=== PATIENT | male | born 1955 | race Caucasian/White ===

== ENCOUNTER 2016-07-30 08:21 | Emergency (ER) | payer OTHER ==
[2016-07-30 08:41] VITALS: BP 135/76; PULSE 73; RESP 16; TEMP 98.1; O2SAT 95
--- NOTE | 2016-07-30 09:23 | EDPHY ---
H & P Time Seen by Provider: 07/30/16 08:41 HPI/ROS: CHIEF COMPLAINT: right wrist pain HISTORY OF PRESENT ILLNESS: 52-year-old male presents emergency department complaining of worsening right lateral wrist pain over the last week. Patient states it is worsening and aching up to his elbow. Patient denies trauma. 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 Patient denies previous similar symptoms. He is [id number], no numbness or tingling in his hand. Patient denies neck pain. Smoking Status: Never smoked Physical Exam: GEN: Awake, alert, oriented, no acute distress RESP: nl resp effort MSK: Right wrist with decreased range of motion due to pain, no swelling, no redness, no warmth, tenderness over 1st dorsal compartment, positive Katharine test. 2+ radial pulses, cap refill less than 2 seconds SKIN: No break in skin Constitutional: Initial Vital Signs Temperature (C) 36.7 C 07/30/16 08:38 Heart Rate 73 07/30/16 08:38 Respiratory Rate 16 07/30/16 08:38 Blood Pressure 135/76 H 07/30/16 08:38 O2 Sat (%) 95 07/30/16 08:38 O2 Delivery Mode Room Air Allergies/Adverse Reactions: Penicillins Allergy (Intermediate, Verified 01/12/09 15:41) JOINT SWELLING Home Medications: Medication Instructions Recorded (None) 01/12/09 MDM/Departure - Depart Disposition: Home, Routine, Self-Care Clinical Impression: De Quervain's tenosynovitis, right Condition: Good Instructions: De Quervain Disease (ED) Additional Instructions: Wear Velcro thumb spica splint for the next week. Ice, take 600 mg of ibuprofen every 8 hours with food for 5 days. Remove lidocaine patch in 12 hours. Follow up with your orthopedist for symptoms that are not improving in the next 5-7 days. Return to the emergency department for worsening symptoms, fevers, redness to your joint, new symptoms or concerns. Referrals: Britney Maria MD [Medical Doctor] - As per Instructions (Hand doctor cloud operations engineer. )
[2016-07-30] MEDS ORDERED: LIDOCAINE 5% 1 EA PATCH TD ONE (09:29)
[2016-07-30] MEDS ORDERED: PATCH REMOVAL 1 EA PATCH TD SCH (21:00)
[2016-07-31] MEDS ORDERED: LIDOCAINE 5% 1 EA PATCH TD ONE (09:00)
== END 2016-07-30 10:10 | disposition home or self-care (01) ==
DX: M65.4 Radial styloid tenosynovitis [de Quervain] (principal)
CPT/HCPCS: L3807

== ENCOUNTER → 2018-07-24 | Outpatient (CLI) | payer OTHER | LOC: FIMAGING 13:02 | PROVIDERS: ATTEND Orthopaedic Surgery | DX: M17.12 Unilateral primary osteoarthritis, left knee (principal) ==

== ENCOUNTER 2018-07-31 05:54 | Observation (INO) | payer OTHER ==
--- NOTE | 2018-07-31 05:59 | PDHPUP ---
History & Physical Update H&P update statement: This history and physical update is based on an assessment of the patient which was completed after admission or registration (within 24 hours), but prior to the surgery/procedure. H&P update: H&P reviewed & patient examined, no change in patient's condition since H&P completed
[2018-07-31] MEDS ORDERED: TRANEXAMIC ACID 3,000 MG in NS (SYRINGE) 50 ML IRR ONE (06:00)
[2018-07-31] MEDS ORDERED: ROPIVACAINE 0.2% 80 MG, EPINEPHrine 0.2 MG, KETOROLAC TROMETHAMINE 30 MG in SYRINGE 0 ML IU ONE (06:00)
[2018-07-31] MEDS ORDERED: ceFAZolin 2 GM/DEXTROSE 100 ML IV ONE (06:07)
[2018-07-31] MEDS ORDERED: DEXAMETHASONE 4 MG/ML VIAL IVP ONE (06:07)
[2018-07-31] MEDS ORDERED: FAMOTIDINE 20 MG TAB PO ONE (06:07)
[2018-07-31] MEDS ORDERED: ACETAMINOPHEN 325 MG TAB PO ONE (06:07)
[2018-07-31] MEDS ORDERED: LR 1,000 ML IV ONE (06:08)
[2018-07-31] MEDS ORDERED: TRANEXAMIC ACID 3,000 MG/50 ML BAG IRR ONE (06:48)
--- NOTE | 2018-07-31 06:54 | PDANEPAE ---
ANE History of Present Illness left knee pain, here for L TKA ANE Past Medical History - Cardiovascular History Hx Hypertension: No Hx Arrhythmias: No Hx Chest Pain: No Hx Coronary Artery / Peripheral Vascular Disease: No Hx CHF / Valvular Disease: No Hx Palpitations: No Cardiovascular History Comment: HLD - Pulmonary History Hx COPD: No Hx Asthma/Reactive Airway Disease: Yes Hx Recent Upper Respiratory Infection: Yes Hx Oxygen in Use at Home: No Hx Sleep Apnea: No Sleep Apnea Screening Result - Last Documented: Positive Pulmonary History Comment: URI 05/2018 - Neurologic History Hx Cerebrovascular Accident: No Hx Seizures: No Hx Dementia: No Neurologic History Comment: Postherpetic neuralgia R foot - Endocrine History Hx Diabetes: No - Renal History Hx Renal Disorders: No - Liver History Hx Hepatic Disorders: No - Neurological & Psychiatric Hx Hx Neurological and Psychiatric Disorders: No - Cancer History Hx Cancer: No - Congenital Disorder History Hx Congenital Disorders: No - GI History Hx Gastrointestinal Disorders: Yes Gastrointestinal History Comment: GERD intermittently - Other Health History Other Health History: Insomnia. Bilateral knee arthritis. [place]-bilateral hearing aides. Reports having had bleeding after surgeries. - Chronic Pain History Chronic Pain: No - Surgical History Prior Surgeries: Deviated septum repair ~2008. Uvulectomy ~2010. L knee surgeries x3. R knee surgeries x1-2. Bilateral carpal tunnel surgery. Corpal tunnel surgery R arm ANE Review of Systems Review of Systems: - Exercise capacity METS (RN): 4 METS ANE Patient History - Allergies Allergies/Adverse Reactions: Penicillins Allergy (Intermediate, Verified 01/12/09 15:41) JOINT SWELLING - Home Medications Home Medications: Cholecalciferol Vit D3 [Vitamin D3 (*)] 1,000 units PO DAILY 07/16/18 [Last Taken 07/16/18] Zolpidem Tartrate [Ambien 5MG (*)] 2.5 mg PO HS PRN 07/16/18 [Last Taken ] traMADol [Ultram 50 mg (*)] 50 mg PO DAILY PRN 07/16/18 [Last Taken 2 Weeks Ago ~07/17/18] Acetamn/Diphenhydramine 500/25 [Tylenol PM (*)] 1 each PO HS PRN 07/22/18 [Last Taken 07/20/18] - NPO status NPO Since - Liquids (Date): 07/30/18 NPO Since - Liquids (Time): 20:00 NPO Since - Solids (Date): 07/30/18 NPO Since - Solids (Time): 20:00 - Smoking Hx Smoking Status: Never smoked - Family Anes Hx Family Hx Anesthesia Complications: None. ANE Labs/Vital Signs - Vital Signs Blood Pressure: 121/83 Heart Rate: 67 Respiratory Rate: 17 O2 Sat (%): 92 Height: 175.26 cm Weight: 86.183 kg ANE Physical Exam - Airway Neck exam: FROM Mallampati Score: Class 1 Mouth exam: normal dental/mouth exam - Pulmonary Pulmonary: no respiratory distress, no rales or rhonchi - Cardiovascular Cardiovascular: regular rate and rhythym, no murmur, rub, or gallop - ASA Status ASA Status: II ANE Anesthesia Plan Anesthesia Plan: GA with mask, spinal Regional Anesthesia: single shot NB Total IV Anesthesia: Yes
[2018-07-31] MEDS ORDERED: MIDAZOLAM 2 MG/2 ML VIAL IVP ONE (06:55)
[2018-07-31] MEDS ORDERED: MIDAZOLAM 2 MG/2 ML VIAL ONE (06:56)
[2018-07-31] MEDS ORDERED: BUPIVACAINE 0.25% 30 ML SDV ONE (06:57)
[2018-07-31] MEDS ORDERED: LIDOCAINE 2% 100 MG/5 ML SYR ONE (07:00)
[2018-07-31] MEDS ORDERED: PROPOFOL/EMULSION 500 MG/50 ML BOTTLE IV ONE ×2 (07:00→07:46)
[2018-07-31] MEDS ORDERED: fentaNYL 100 MCG/2 ML INJ ONE (07:00)
[2018-07-31] MEDS ORDERED: PROMETHAZINE HCL 25 MG SUPPR PR PRN (07:10)
[2018-07-31] MEDS ORDERED: PROMETHAZINE HCL 25 MG/ML INJ IVP PRN (07:10)
[2018-07-31] MEDS ORDERED: diphenhydrAMINE 25 MG CAP PO PRN (07:10)
[2018-07-31] MEDS ORDERED: METOCLOPRAMIDE 10 MG/2 ML VIAL IVP PRN (07:10)
[2018-07-31] MEDS ORDERED: TEMAZEPAM 15 MG CAP PO PRN (07:10)
[2018-07-31] MEDS ORDERED: BISACODYL 10 MG SUPP PR PRN (07:10)
[2018-07-31] MEDS ORDERED: LACTULOSE 20 GM/30 ML UDCUP PO PRN (07:10)
[2018-07-31] MEDS ORDERED: MAGNESIUM HYDROXIDE 30 ML UDCUP PO PRN (07:10)
[2018-07-31] MEDS ORDERED: POLYETHYLENE GLYCOL 3350 17 GM PKT PO PRN (07:10)
[2018-07-31] MEDS ORDERED: ONDANSETRON DISINTEGRATING 4 MG TAB PO PRN (07:10)
[2018-07-31] MEDS ORDERED: CYCLOBENZAPRINE 10 MG TAB PO PRN (07:10)
[2018-07-31] MEDS ORDERED: DIPHENOXYLATE/ATROPINE LOMOTIL 1 TAB PO PRN (07:10)
[2018-07-31] MEDS ORDERED: ONDANSETRON 4 MG/2 ML VIAL IVP PRN (07:10)
[2018-07-31] MEDS ORDERED: ZOLPIDEM TARTRATE 5 MG TAB PO PRN (07:12)
[2018-07-31] MEDS ORDERED: LR 1,000 ML IV SCH (07:30)
[2018-07-31] MEDS ORDERED: BUPIVACAINE 0.5% 30 ML SDV ONE (07:45)
[2018-07-31] MEDS ORDERED: fentaNYL 100 MCG/2 ML INJ IVP PRN (08:30)
[2018-07-31] MEDS ORDERED: NALOXONE HCL 0.4 MG/ML INJ IVP PRN (08:30)
[2018-07-31] MEDS ORDERED: DIAZEPAM 10 MG/2 ML SYR IVP PRN (08:30)
[2018-07-31] MEDS ORDERED: HYDROmorphONE/DILAUDID 1 MG/ML INJ IVP PRN (08:30)
[2018-07-31] MEDS ORDERED: LR 500 ML IV PRN (08:30)
[2018-07-31] MEDS ORDERED: MEPERIDINE 25 MG/0.5 ML AMP IVP PRN (08:30)
--- NOTE | 2018-07-31 08:47 | POSTOPPROG ---
Post Op Note Date of Operation: 07/31/18 Surgeon: Deven Tidwell Dietitian: Елена Vaughn PAC Anesthesiologist: Dr. Barbie Carpio Anesthesia: Spinal, Other (Specify) (adductor canal block) Pre-op Diagnosis: left knee OA Post-op Diagnosis: same Indication: left knee pain Procedure: LTKA, robot assisted Findings: severe OA of left knee Inf/Abcess present in the surg proc area at time of surgery?: No EBL: 50-100
--- NOTE | 2018-07-31 09:00 | POSTANESTH ---
Post Anesthetic Evaluation Cardiovascular Status: Normal, Stable Respiratory Status: Normal, Stable Level of Consciousness/Mental Status: Can Participate in Eval, Alert and Oriented Pain Control: Adequate, Prn Tx Ordered Nausea/Vomiting Control: Adequate, Prn Tx Ordered Complications Possibly Related to Anesthesia: None Noted (moving bilat lower extrem)
--- NOTE | 2018-07-31 10:23 | SOAPPROG ---
SOAP Progress Note Assessment/Plan: Assessment: s/p left TKA, YOON assist - procedure earlier today with Dr. Tidwell Doing well Plan: Begin d/c planning likely home tomorrow, will have support from his Continue VTE ppx- aspirin 81 mg BID x 4 weeks, CARLOS hose x 2 weeks, SCDs in hospital -He reports a history of bleeding after ENT and knee surgeries - will monitor is incision Continue oral pain medication oxycodone, Tylenol, Celebrex Continue PT efforts WBAT, ROM as tolerated but limit knee flexion to 90 degrees until 5-7 days post-op. IS 10 times per hour Follow up at [facility] [place] with Елена Vaughn PA-C, on 08/20/18 at 9:00 am Subjective: Patient states he is doing well, left knee pain is minimal at this time secondary to spinal anesthesia and nerve block. He is planning on going home tomorrow and will have the support of his . He reports that he has had bleeding after ENT and knee surgeries, we will continue to monitor his incision. He denies SOB, CP, fever, chills. He has outpatient PT scheduled to start next week. Objective: Vital Signs Temp Pulse Resp BP Pulse Ox 36.5 C 71 16 123/76 H 94 07/31/18 09:45 07/31/18 09:45 07/31/18 09:45 07/31/18 09:45 07/31/18 09:45 07/30/18 07/31/18 08/01/18 05:59 05:59 05:59 Intake Total 800 Output Total 30 Balance 770 Patient resting comfortably in bed, no acute distress. His is present in the room. LLE: Knee wound dressings clean, dry and intact. Thigh high CARLOS hose and SCDs are in place bilaterally. Patient tolerating the [place]. Lower leg compartments are soft and nontender. Negative Homans sign bilaterally. Patient can actively DF and PF his left foot and great toe against resistance. Grossly NVI distally. ICD10 Worksheet Patient Problems: Problems Problem Status Onset Unilateral primary osteoarthritis, left knee Acute
[2018-07-31] MEDS: SENNOSIDES/DOCUSATE SODIUM TAB PO SCH ×2 (10:32→20:49)
[2018-07-31] MEDS: oxyCODONE IR 5 MG TAB PO PRN ×5 (11:10→20:48)
[2018-07-31] MEDS: ACETAMINOPHEN 325 MG TAB PO SCH ×2 (13:11→19:30)
[2018-07-31] MEDS: ceFAZolin 2 GM/DEXTROSE 100 ML IV SCH ×2 (15:09→21:31)
[2018-07-31] MEDS ORDERED: PNEUMOCOCCAL 0.5ML VACCINE VIAL (PNEUMOVAX 23) IM ONE (20:38)
[2018-07-31] MEDS: FAMOTIDINE 20 MG TAB PO SCH (20:48)
[2018-07-31] MEDS: ASPIRIN 81 MG CHEWABLE TAB PO SCH (20:49)
[2018-08-01] MEDS: ACETAMINOPHEN 325 MG TAB PO SCH ×2 (00:50→06:55)
[2018-08-01] MEDS: oxyCODONE IR 5 MG TAB PO PRN ×2 (06:56→09:17)
[2018-08-01 07:32] VITALS: BP 117/75
--- NOTE | 2018-08-01 07:44 | SOAPPROG ---
SOAP Progress Note Assessment/Plan: Assessment: s/p left TKA, YOON assist - POD1 with Dr. Tidwell Doing better than expected Plan: Continue d/c planning - patient doing better than expected, likely home today, will have support from his Continue VTE ppx- aspirin 81 mg BID x 4 weeks, CARLOS hose x 2 weeks Continue oral pain medication - oxycodone, Tylenol, Celebrex Continue PT efforts WBAT, ROM as tolerated but limit knee flexion to 90 degrees until 5-7 days post-op - needs clearance from PT prior to d/c IS 10 times per hour Follow up at [facility] [place] [place] with Елена Vaughn PA-C, on 08/20/18 at 9:00 am Subjective: Patient states he is doing well, pain is controlled with oral medication. He feels well enough to go home today. Patient denies SOB, CP, fever, chills, nausea, tingling, numbness. Objective: Vital Signs Temp Pulse Resp BP Pulse Ox 36.5 C 68 17 117/75 92 08/01/18 07:31 08/01/18 07:31 08/01/18 07:31 08/01/18 07:31 08/01/18 07:31 Laboratory Results 08/01/18 04:12 07/31/18 08/01/18 08/02/18 05:59 05:59 05:59 Intake Total 1200 Output Total 3005 Balance -1805 Patient resting comfortably in bed, no acute distress. LLE: Knee wound dressings clean, dry and intact. Lower leg compartments are soft and nontender. Negative Homans sign bilaterally. Patient can actively DF and PF his left foot and great toe against resistance. Grossly NVI distally. ICD10 Worksheet Patient Problems: Problems Problem Status Onset Unilateral primary osteoarthritis, left knee Acute
--- NOTE | 2018-08-01 07:49 | PDDCSUM ---
Discharge Summary Discharge Summary: ADMISSION DIAGNOSIS: Left knee severe degenerative arthritis DISCHARGE DIAGNOSIS: Left knee severe degenerative arthritis OPERATION PERFORMED: July 31, 2018, Left total knee arthroplasty, Oneal robot assisted POSTOPERATIVE COMPLICATIONS: None CONDITION ON DISCHARGE: Improved HPI: The patient is a 62 year old male who has end-stage arthritis of his left knee. Clinical and radiographic features are consistent with this. Patient has failed attempts at conservative management, therefore, recommended operative left total knee replacement with robotic assistance. DESCRIPTION OF HOSPITAL COURSE: The patient was admitted to the hospital on the morning of surgery and underwent a left total knee arthroplasty, Oneal robot assisted. Postoperatively, patient was treated with multimodal DVT prophylaxis, including aspirin 81 mg BID, SCDs and CARLOS hose. Patient was seen by PT and made good progress with ambulation and stairs. On the first post-operative day the patients H&H was 14.2/41.0. Patient was able to void spontaneously. At the time of discharge, patient was afebrile, wound was clean and dry. Patient is walking with a walker. DISPOSITION: The patient is discharged home and will have outpatient PT in the next 1-2 weeks. Patient may progress to full weightbearing on the left lower extremity as tolerated. CARLOS stockings for 2 weeks during the day time. Aspirin 81 mg BID for 4 weeks. Patient has prescriptions for Celebrex, oxycodone for pain control. The patient will be seen by Dr. Vicente office in approximately 3 weeks. If there are any problems, patient is to call Dr. Vicente office.
[2018-08-01] MEDS: SENNOSIDES/DOCUSATE SODIUM TAB PO SCH (08:45)
[2018-08-01] MEDS: ASPIRIN 81 MG CHEWABLE TAB PO SCH (08:45)
[2018-08-01] MEDS: FAMOTIDINE 20 MG TAB PO SCH (08:56)
--- NOTE | 2018-08-01 10:03 | ASMTLACE ---
LACE Length of stay for Answers: 1 day current admission Acuity / Level of Answers: No Care: Did the patient have an inpatient admission? Comorbidities - select Answers: Other Notes: HLD all that apply # of Emergency department Answers: 0 visits in the last 6 months Score: 2 Date Signed: 08/01/2018 10:02 AM Electronically Signed By:MARLENE Marie
--- NOTE | 2018-08-03 12:46 | GOP ---
[f rep st] OPERATIVE REPORT DATE OF OPERATION: 07/31/2018 SURGEON: Dayana Tidwell MD MAT PUNCHER: Deb Vaughn PA-C. ANESTHESIA: Spinal. PREOPERATIVE DIAGNOSIS: Left knee osteoarthritis. POSTOPERATIVE DIAGNOSIS: Left knee osteoarthritis. PROCEDURE PERFORMED: Left total knee arthroplasty with computer navigation, robotic assist. FINDINGS: ESTIMATED BLOOD LOSS: 30 cc. INDICATIONS: The patient is a 62-year-old male with severe and progressive pain and deformity of the left knee unresponsive to conservative care. The risks and benefits of surgical intervention were e xplained in detail. DESCRIPTION OF PROCEDURE: The patient was brought to the operative room and placed on the table in t he supine position. Spinal anesthesia was induced without difficulty. A pneumatic tourniquet was appl ied about the left proximal thigh, and the leg was prepped and draped in a sterile fashion. The leg h older was applied. After exsanguination by elevation the tourniquet was inflated to 250 mmHg. Incision was made anterior medial from the tibial tuberosity to a point 2 cm proximal to the superior pole of the patella. Medial parapatellar arthrotomy was carried out from the superior pole of the pa tella and posteriorly in line with the fibers of the Type II VMO. The medial collateral ligament was elevated and the infrapatellar fat pad was resected. The patella was everted and the articular surface was excised. A 38 mm patellar button was placed. Attention was turned first to the distal aspect of the femur. After exposure of the femur, 2 half pi ns were placed for fixation of the femoral array. In a similar fashion, 2 pins were placed anteromed ial on the tibia for fixation of the tibial array. External land marking and registration of the hip center was performed without difficulty. Internal femoral and tibial registration was carried out w ithout difficulty and the femoral and tibial checkpoints were placed and verified for accuracy. Attention was turned to the femur. The foot print for the size 5 femoral component was cut with the saw using the [employer] robotic system and verified for accuracy against the CT based plan. In a similar f ashion, the saw was used to cut the footprint for the size 5 tibial component using the [employer] system an d verified for accuracy against the CT based plan. The tibial articular surface was excised without d ifficulty, followed by the intercondylar box cut. The knee was extended and the remnants of the medial and lateral meniscus were excised. The posterior capsule was injected with ropivacaine, epinephrine and Toradol. A size 5 tibial tray was positioned . Trial reduction was then carried out. There was excellent range of motion, alignment, and stability using the 5 x 9 mm polyethylene. All trials were then removed. The joint was thoroughly irrigated and carefully dried. The Press-Fit c omponents were implanted. The permanent 5 x 9 mm polyethylene was placed without difficulty. The tourniquet was deflated and all bleeders were coagulated. The wound was thoroughly irrigated and closed using interrupted sutures of 2-0 Vicryl for the joint capsule. The subcu was closed with 3-0 V icryl and the skin with 4-0 Monocryl. Dermabond and Steri-Strips were applied followed by a compress dani dressing. The patient was then moved from the operating room to the recovery room in good conditi on, having tolerated the procedure well. ANESTHESIA: General. TOURNIQUET: 250 mmHg. /[id number]/MODL
== END 2018-08-01 09:37 | disposition home or self-care (01) ==
LOC: F3N 05:54
PROVIDERS: ADMIT Orthopaedic Surgery; ATTEND Orthopaedic Surgery
DX: M17.12 Unilateral primary osteoarthritis, left knee (principal); E78.5 Hyperlipidemia, unspecified
CPT/HCPCS: 97110-GP; 97116-GP; 97161-GP; G0009; G0378; J0171; J0690; J1100; J1885; J2001; J2250; J2704; J2795; J3010